=== PATIENT | male | born 1965 | race Caucasian/White ===

== ENCOUNTER 2025-04-16 15:15 | Inpatient (IN) | payer BC ==
[~2025-04-16] VITALS: Ht 180.3 cm; Wt 96.2 kg
[~2025-04-16 15:15] MED LIST: BISO5TAB14 PO; FOLI800C PO; LISI10TA24 PO
[2025-04-16] MEDS ORDERED: BISACODYL 5 MG TAB PO PRN (16:00)
[2025-04-16] MEDS ORDERED: MAALOX 30 ML SUSP *UDC PO PRN (16:00)
[2025-04-16] MEDS ORDERED: ACETAMINOPHEN 325 MG TAB PO PRN (16:00)
[2025-04-16] MEDS ORDERED: ONDANSETRON 4MG ORAL DISINTEGRATING TAB PO PRN (16:00)
[2025-04-16] MEDS ORDERED: BISACODYL 10 MG SUPP PR PRN (16:00)
[2025-04-16] MEDS ORDERED: SIMETHICONE 80MG CHEW TAB PO PRN (16:00)
[2025-04-16] MEDS ORDERED: MOM 30 ML SUSPENSION UDC PO PRN (16:00)
[2025-04-16] MEDS ORDERED: traMADol 50 MG TAB PO PRN ×2 (16:25)
[2025-04-16] MEDS ORDERED: SODIUM CHLORIDE 0.9% INJ 10 ML SYR IV PRN (16:40)
[2025-04-16 16:55] VITALS: BP 118/79; TEMP 97.9; O2SAT 95
[2025-04-16] MEDS ORDERED: [UNRECOGNIZED DRUG - CODE] IV (18:07)
[2025-04-16] MEDS ORDERED: BACI28.417 TOP (18:07)
[2025-04-16] MEDS ORDERED: PANT-23 PO (18:07)
[2025-04-16] MEDS ORDERED: CEFTINJ2 IV (18:07)
[2025-04-16] MEDS ORDERED: MAGN400T2 PO (18:07)
[2025-04-16] MEDS ORDERED: CLON0.5T17 PO (18:07)
[2025-04-16] MEDS ORDERED: FOLI1TAB11 PO (18:07)
[2025-04-16] MEDS ORDERED: METR-265 PO (18:07)
[2025-04-16] MEDS ORDERED: LACT20EL PO (18:07)
[2025-04-16] MEDS ORDERED: VIMP200T PO (18:07)
[2025-04-16] MEDS ORDERED: NADO40TA40 PO (18:17)
[2025-04-16] MEDS ORDERED: THIA100T7 PO (18:17)
[2025-04-16] MEDS ORDERED: SPIR50TA4 PO (18:17)
[2025-04-16] MEDS ORDERED: FURO20TA2 PO (18:17)
[2025-04-16] MEDS ORDERED: XIFA550T PO (18:22)
[2025-04-16] MEDS ORDERED: ACET650S3 PR (18:22)
[2025-04-16] MEDS ORDERED: SANI2SUP PR (18:22)
[2025-04-16] MEDS ORDERED: LEVE10003 PO (18:27)
[2025-04-16] MEDS ORDERED: KEPP1TAB PO (18:27)
[2025-04-16] MEDS ORDERED: FLUO-365 PO (18:27)
[2025-04-16] MEDS ORDERED: LISI5TAB11 PO (18:27)
[2025-04-16] MEDS ORDERED: ROSU10TA90 PO (18:32)
[2025-04-16] MEDS ORDERED: med rec comment (18:32)
[2025-04-16] MEDS ORDERED: HOME MED LIST COMPLETE! XX SCH (18:40)
[2025-04-16 20:00] VITALS: BP 128/85; TEMP 97.5; O2SAT 96
[2025-04-16] MEDS ORDERED: cefTRIAXone SOD 2 GM in DEXTROSE 5% (D5W) ADV/MINI-BAG 50 ML IV SCH (20:00)
[2025-04-16 20:44] VITALS: BP 125/79; TEMP 97.5; O2SAT 100
[2025-04-16] MEDS: SENNA 8.6 MG TAB PO SCH (21:00)
[2025-04-16] MEDS: LACTULOSE 20 GM/30 ML SYRUP UDC PO SCH (21:00)
[2025-04-16] MEDS ORDERED: VANCOMYCIN HCL 1,250 MG in IV FLUID PLACE HOLDER 1 EA IV SCH (21:00)
[2025-04-16] MEDS: DOCUSATE SODIUM 100 MG CAPSULE PO SCH (21:00)
[2025-04-16] MEDS ORDERED: VANCOMYCIN HCL 1,250 MG, VIAL MATE ADAPTER 1 EACH in NS 250 ML IV SCH (22:00)
[2025-04-16] MEDS: LACOSAMIDE 50 MG TAB PO SCH (23:23)
[2025-04-16] MEDS: clonazePAM 0.5 MG TAB PO SCH (23:24)
[2025-04-16] MEDS: MAGNESIUM OXIDE 400 MG TAB PO SCH (23:25)
[2025-04-16] MEDS: PANTOPRAZOLE 40MG TAB PO SCH (23:25)
[2025-04-16] MEDS: cefTRIAXone SOD 2 GM in DEXTROSE 5% (D5W) ADV/MINI-BAG 50 ML IV SCH (23:26)
[2025-04-17] MEDS: VANCOMYCIN HCL 1,250 MG, VIAL MATE ADAPTER 1 EACH in NS 250 ML IV SCH ×2 (00:33→11:50)
[2025-04-17] MEDS ORDERED: HEPARIN LOCK FLUSH 100 UNITS/ML 3 ML SYRINGE IV PRN (02:55)
[2025-04-17] MEDS ORDERED: SODIUM CHLORIDE 0.9% INJ 10 ML SYR IV PRN (02:55)
[2025-04-17 04:00] VITALS: BP 104/59; TEMP 97; O2SAT 93
[2025-04-17 08:01] LABS: BASO # 0.0 10^3/uL (0.0-0.2); BASO % 0.7 % (0.0-1.0); EOS # 0.1 10^3/uL (0.0-0.5); EOS % 1.2 % (0.0-3.0); LYMPH # 0.6 10^3/uL (1.5-5.0); LYMPH % 10.1 % (24.0-44.0); MONO # 1.0 10^3/uL (0.0-0.8); MONO % 16.4 % (2.0-8.0); NEUTROPHILS # 4.2 10^3/uL (1.5-8.5); NEUTROPHILS % 70.4 % (36.0-66.0); PLATELET COUNT, AUTOMATED 106 10^3/uL (150-450)
[2025-04-17] MEDS: FOLIC ACID 1 MG TAB PO SCH (08:31)
[2025-04-17 08:36] LABS: ALT/SGPT 16 U/L (7.0-40); AST/SGOT 36 U/L (<34); CALCIUM LEVEL 8.8 MG/DL (8.5-10.1); CARBON DIOXIDE LEVEL 24 MMOL/L (20-31); CHLORIDE LEVEL 103 MMOL/L (98-107); CREATININE FOR GFR 0.57 MG/DL (0.70-1.30); GLOMERULAR FILTRATION RATE > 90.0 (>56); POTASSIUM SERUM 2.9 MMOL/L (3.5-5.1); SODIUM LEVEL 139 MMOL/L (136-145)
[2025-04-17] MEDS: SPIRONOLACTONE 50 MG TAB PO SCH (08:39)
[2025-04-17] MEDS: NADOLOL 20MG TABLET PO SCH (08:40)
[2025-04-17] MEDS: FUROSEMIDE 20 MG TAB PO SCH (08:41)
[2025-04-17] MEDS: THIAMINE 100 MG TAB PO SCH (08:41)
[2025-04-17] MEDS ORDERED: SODIUM CHLORIDE 0.9% INJ 10 ML SYR IV SCH (09:00)
[2025-04-17] MEDS ORDERED: HEPARIN LOCK FLUSH 100 UNITS/ML 3 ML SYRINGE IV SCH (09:00)
[2025-04-17] MEDS: SODIUM CHLORIDE 0.9% INJ 10 ML SYR IV SCH ×2 (09:49→11:51)
[2025-04-17] MEDS: POTASSIUM CHLORIDE 10MEQ SR TABLET PO ONE ×2 (09:50→11:50)
[2025-04-17] MEDS ORDERED: cefTRIAXone SOD 2 GM in DEXTROSE 5% (D5W) ADV/MINI-BAG 50 ML IV SCH (10:00)
[2025-04-17 10:48] LABS: MAGNESIUM LEVEL 1.3 MG/DL (1.8-2.4)
[2025-04-17 11:53] VITALS: BP 103/70; TEMP 98; O2SAT 95
[2025-04-17] MEDS: MAG SULF 1GM/100ML (MAG RUN) 1 GM in IV 1 EA IV SCH (15:19)
[2025-04-17 17:59] LABS: MAGNESIUM LEVEL 1.8 MG/DL (1.8-2.4); POTASSIUM SERUM 3.4 MMOL/L (3.5-5.1)
[2025-04-17 20:00] VITALS: BP 106/63; TEMP 97.6; O2SAT 98
[2025-04-18 04:00] VITALS: BP 122/63; TEMP 97.8; O2SAT 95
[2025-04-18 11:55] VITALS: BP 104/63; TEMP 98.3; O2SAT 96
[2025-04-18 20:00] VITALS: BP 99/58; TEMP 97.6; O2SAT 98
[2025-04-19 04:00] VITALS: BP 114/64; TEMP 97.6; O2SAT 96
[2025-04-19 06:23] LABS: BASO # 0.0 10^3/uL (0.0-0.2); BASO % 0.7 % (0.0-1.0); EOS # 0.1 10^3/uL (0.0-0.5); EOS % 0.9 % (0.0-3.0); LYMPH # 0.6 10^3/uL (1.5-5.0); LYMPH % 10.1 % (24.0-44.0); MONO # 0.8 10^3/uL (0.0-0.8); MONO % 14.4 % (2.0-8.0); NEUTROPHILS # 4.1 10^3/uL (1.5-8.5); NEUTROPHILS % 73.0 % (36.0-66.0); PLATELET COUNT, AUTOMATED 101 10^3/uL (150-450)
[2025-04-19 06:40] LABS: C REACTIVE PROTEIN QUANTITATIV 2.98 MG/DL (<1.0)
[2025-04-19 06:41] LABS: ALT/SGPT 13 U/L (7.0-40); AST/SGOT 31 U/L (<34); CALCIUM LEVEL 8.4 MG/DL (8.5-10.1); CARBON DIOXIDE LEVEL 22 MMOL/L (20-31); CHLORIDE LEVEL 105 MMOL/L (98-107); CREATININE FOR GFR 0.57 MG/DL (0.70-1.30); GLOMERULAR FILTRATION RATE > 90.0 (>56); POTASSIUM SERUM 3.4 MMOL/L (3.5-5.1); SODIUM LEVEL 139 MMOL/L (136-145)
[2025-04-19 06:57] LABS: MAGNESIUM LEVEL 1.3 MG/DL (1.8-2.4)
[2025-04-19] MEDS: MAG SULF 1GM/100ML (MAG RUN) 1 GM in IV 1 EA IV SCH (08:13)
[2025-04-19] MEDS: POTASSIUM CHLORIDE 10MEQ SR TABLET PO ONE (08:14)
[2025-04-19 11:45] VITALS: BP 116/68; TEMP 98.1; O2SAT 100
[2025-04-19] MEDS: MAGNESIUM OXIDE 400 MG TAB PO ONE (12:06)
[2025-04-19 20:00] VITALS: BP 118/69; TEMP 97.7; O2SAT 96
[2025-04-20 04:00] VITALS: BP 109/68; TEMP 97.7; O2SAT 95
[2025-04-20 08:01] LABS: MAGNESIUM LEVEL 1.3 MG/DL (1.8-2.4); POTASSIUM SERUM 3.3 MMOL/L (3.5-5.1)
[2025-04-20] MEDS: POTASSIUM CHLORIDE 10MEQ SR TABLET PO SCH ×2 (08:32→16:39)
[2025-04-20 10:57] LABS: VANCOMYCIN LEVEL TROUGH 10.6 UG/ML (10.0-20.0)
[2025-04-20 11:48] LABS: BASO # 0.1 10^3/uL (0.0-0.2); BASO % 1.1 % (0.0-1.0); EOS # 0.1 10^3/uL (0.0-0.5); EOS % 0.8 % (0.0-3.0); LYMPH # 0.5 10^3/uL (1.5-5.0); LYMPH % 6.3 % (24.0-44.0); MONO # 0.9 10^3/uL (0.0-0.8); MONO % 10.8 % (2.0-8.0); NEUTROPHILS # 6.9 10^3/uL (1.5-8.5); NEUTROPHILS % 80.3 % (36.0-66.0); PLATELET COUNT, AUTOMATED 147 10^3/uL (150-450)
[2025-04-20 12:00] VITALS: BP 122/71; TEMP 97.3; O2SAT 99
[2025-04-20] MEDS: POTASSIUM CHLORIDE 10MEQ SR TABLET PO ONE (12:10)
[2025-04-20] MEDS: VANCOMYCIN HCL 1,500 MG, VIAL MATE ADAPTER 1 EACH in NS 500 ML IV SCH ×2 (12:42→17:58)
[2025-04-20 12:52] LABS: ALT/SGPT 15 U/L (7.0-40); AST/SGOT 31 U/L (<34); CALCIUM LEVEL 8.7 MG/DL (8.5-10.1); CARBON DIOXIDE LEVEL 21 MMOL/L (20-31); CHLORIDE LEVEL 105 MMOL/L (98-107); CREATININE FOR GFR 0.58 MG/DL (0.70-1.30); GLOMERULAR FILTRATION RATE > 90.0 (>56); POTASSIUM SERUM 3.8 MMOL/L (3.5-5.1); SODIUM LEVEL 138 MMOL/L (136-145)
[2025-04-20 14:55] LABS: KETONE, URINE AUTO RFX NEGATIVE (NEGATIVE); MUCUS, URINE RFX SMALL (NEGATIVE); NITRITE, URINE AUTO RFX NEGATIVE (NEGATIVE); RBC, URINE AUTO RFX 24 /HPF (0-3); SQUAM EPITHELIAL CELL UR AURFX 0 /HPF (0-6); YEAST LIKE CELL URINE AUTO RFX LARGE
[2025-04-20 14:58] LABS: LEUKOCYTE ESTERASE UR AUTO RFX 2+ (NEGATIVE); WBC, URINE AUTO RFX 103 /HPF (0-3)
[2025-04-20] MEDS: ALTEPLASE 2 MG/2 ML VIAL XX ONE ×2 (15:43→17:57)
[2025-04-20] MEDS: LACTULOSE 20 GM/30 ML SYRUP UDC PO SCH (16:39)
[2025-04-20 20:00] VITALS: BP 99/59; TEMP 97.5; O2SAT 96
[2025-04-21 04:00] VITALS: BP 98/66; TEMP 97.5; O2SAT 98
[2025-04-21 06:28] LABS: BASO # 0.1 10^3/uL (0.0-0.2); BASO % 1.0 % (0.0-1.0); EOS # 0.1 10^3/uL (0.0-0.5); EOS % 1.1 % (0.0-3.0); LYMPH # 0.5 10^3/uL (1.5-5.0); LYMPH % 7.5 % (24.0-44.0); MONO # 0.8 10^3/uL (0.0-0.8); MONO % 11.2 % (2.0-8.0); NEUTROPHILS # 5.5 10^3/uL (1.5-8.5); NEUTROPHILS % 78.2 % (36.0-66.0); PLATELET COUNT, AUTOMATED 114 10^3/uL (150-450)
[2025-04-21 06:57] LABS: ALT/SGPT 12 U/L (7.0-40); AST/SGOT 22 U/L (<34); CALCIUM LEVEL 8.9 MG/DL (8.5-10.1); CARBON DIOXIDE LEVEL 22 MMOL/L (20-31); CHLORIDE LEVEL 106 MMOL/L (98-107); CREATININE FOR GFR 0.53 MG/DL (0.70-1.30); GLOMERULAR FILTRATION RATE > 90.0 (>56); POTASSIUM SERUM 3.8 MMOL/L (3.5-5.1); SODIUM LEVEL 139 MMOL/L (136-145)
[2025-04-21 12:00] VITALS: BP 129/77; TEMP 97.4; O2SAT 100
[2025-04-21 20:00] VITALS: BP 99/60; TEMP 97.3; O2SAT 98
[2025-04-21] MEDS: clonazePAM 0.5 MG TAB PO SCH (21:00)
[2025-04-21] MEDS: SODIUM CHLORIDE 0.9% INJ 10 ML SYR IV PRN (22:00)
[2025-04-22 04:00] VITALS: BP 100/62; TEMP 97.6; O2SAT 97
[2025-04-22 08:30] VITALS: BP 104/68; O2SAT 99
[2025-04-22 09:07] VITALS: BP 104/68
[2025-04-22] MEDS: MODAFINIL 100 MG TABLET PO SCH (09:07)
[2025-04-22] MEDS: THIAMINE 200MG 2ML VIAL IM SCH (09:08)
[2025-04-22] MEDS: MAG SULF 1GM/100ML (MAG RUN) 1 GM in IV 1 EA IV SCH (09:10)
[2025-04-22] MEDS ORDERED: MAG SULF 1GM/100ML (MAG RUN) 1 GM in IV 1 EA IV SCH (10:25)
[2025-04-22] MEDS ORDERED: PROHANCE 279.3MG/ML 5ML VIAL As Ordered ONE (12:01)
[2025-04-22] MEDS ORDERED: PROHANCE 279.3MG/ML 15ML VIAL As Ordered ONE (12:02)
[2025-04-22] MEDS ORDERED: RISATAB3 PO (15:14)
[2025-04-22] MEDS ORDERED: MIRT-10 PO (15:14)
[2025-04-22] MEDS ORDERED: VANC1.5P13 IV (15:14)
[2025-04-22] MEDS ORDERED: MAGN400T33 PO (15:14)
[2025-04-22] MEDS ORDERED: THIA100I4 IM (15:14)
[2025-04-22] MEDS ORDERED: POTA-136 PO (15:14)
[2025-04-22] MEDS ORDERED: KEPP250T5 PO (15:14)
[2025-04-22] MEDS ORDERED: MODA100T13 PO (15:14)
[2025-04-22 16:13] VITALS: BP 99/67; TEMP 98.2; O2SAT 99
[2025-04-22] MEDS ORDERED: MIRTAZAPINE 7.5 MG PER 1/2 TABLET PO SCH (21:00)
== END 2025-04-22 16:45 | disposition short-term general hospital (02) | DRG 49 ==
LOC: M PM&R 16:55
PROVIDERS: ADMIT Physical Medicine & Rehabilitation; ATTEND Physical Medicine & Rehabilitation
DX: G06.0 Intracranial abscess and granuloma (principal); G93.41 Metabolic encephalopathy; I85.10 Secondary esophageal varices without bleeding; D69.6 Thrombocytopenia, unspecified; E72.20 Disorder of urea cycle metabolism, unspecified; R47.01 Aphasia; G81.91 Hemiplegia, unspecified affecting right dominant side; R13.10 Dysphagia, unspecified; E83.42 Hypomagnesemia; K70.30 Alcoholic cirrhosis of liver without ascites; G40.109 Localization-related (focal) (partial) symptomatic epilepsy and epileptic syndromes with simple partial seizures, not intractable, without status epilepticus; D53.9 Nutritional anemia, unspecified; M19.90 Unspecified osteoarthritis, unspecified site; M54.12 Radiculopathy, cervical region; I10 Essential (primary) hypertension; M54.16 Radiculopathy, lumbar region; M47.897 Other spondylosis, lumbosacral region; R91.1 Solitary pulmonary nodule; R33.9 Retention of urine, unspecified; Z74.1 Need for assistance with personal care; Z74.09 Other reduced mobility; F10.20 Alcohol dependence, uncomplicated; Z79.899 Other long term (current) drug therapy; Z88.8 Allergy status to other drugs, medicaments and biological substances; E87.6 Hypokalemia; W06.XXXA Fall from bed, initial encounter; Y92.230 Patient room in hospital as the place of occurrence of the external cause; R40.0 Somnolence; D72.829 Elevated white blood cell count, unspecified; Z98.890 Other specified postprocedural states